=== PATIENT | male | born 1955 | race Caucasian/White ===

== ENCOUNTER 2016-10-05 09:03 | Inpatient (IN) | payer BC, OTHER ==
[~2016-10-05 09:03] MED LIST: ATEN100 PO; CARBAT200 PO; DEPAKOT500 PO; FISH-EPA1000 MG PO; MAX25 PO; PRAVACHOL40 MG PO
[2016-10-05] MEDS ORDERED: VITAMIN D31000 UNIT PO (09:06)
[2016-10-05] MEDS ORDERED: LOVAZA1 GM PO (09:06)
[2016-10-05] MEDS ORDERED: CARBAT200 PO (09:06)
[2016-10-05 09:37] LABS: BASOPHILS 0.4 %; BASOPHILS ABSOLUTE 0.03 10/3/uL (0.0-0.16); EOSINOPHILS 2.3 %; EOSINOPHILS ABSOLUTE 0.16 10/3/uL (0.0-0.53); HEMATOCRIT 49.2 % (40.0-51.0); HEMOGLOBIN 16.5 g/dL (13.6-17.8); IMMATURE GRANULOCYTES 0.3 %; IMMATURE GRANULOCYTES ABSOLUTE 0.02 10/3/uL (0.0-0.11); LYMPHOCYTES 27.5 %; LYMPHOCYTES ABSOLUTE 1.88 10/3/uL (0.67-4.30); MEAN CORPUS HGB CONC 33.5 g/dL (32.0-36.0); MEAN CORPUSCULAR VOLUME 77.6 fL (80-100); MEAN PLATELET VOLUME 10.9 fL (9.2-13.0); MONOCYTES 6.6 %; MONOCYTES ABSOLUTE 0.45 10/3/uL (0.21-1.20); NEUTROPHILS 62.9 %; NEUTROPHILS ABSOLUTE 4.29 10/3/uL (2.02-8.40); RBC DISTRIBUTION WIDTH 14.3 % (12.0-16.0); RED CELL COUNT 6.34 10/6/uL (4.7-6.1)
[2016-10-05 09:38] LABS: ER CBC TAT 0 Hrs 02 Mins; MANUAL DIFF NO %; PLATELET COUNT 197 10/3/uL (150-400); WHITE BLOOD CELLS 6.8 10/3/uL (4.5-10.5)
[2016-10-05 09:52] LABS: INTERNATIONAL NORMAL RATI 1.1 UNITS (-); PARTIAL THROMBO TIME 25.6 SEC (22.5-37.2); PROTIME (NOT ORD) 13.8 SEC (12.0-14.5)
[2016-10-05 10:04] LABS: CHEST PAIN PROFILE TAT 0 Hrs 28 Mins; TROPONIN I 0.06 NG/ML (<0.05)
[2016-10-05 10:05] LABS: BUN (BLOOD UREA NITROGEN) 17 MG/DL (6-23); CHLORIDE, SERUM 103 MMOL/L (96-112); CO2 (CARBON DIOXIDE) 28 MMOL/L (24-34); CREATININE 0.82 MG/DL (0.70-1.30); GFR AFRICAN AMERICAN 109 ML/MIN (>=60); GFR NON AFRICAN AMERICAN 94 ML/MIN (>=60); SODIUM, SERUM 137 MMOL/L (135-148)
[2016-10-05 10:06] LABS: CALCIUM, SERUM 8.8 MG/DL (8.5-10.4); GLUCOSE, SERUM 226 MG/DL (60-99)
[2016-10-05 13:46] LABS: CK-MB 94.8 NG/ML; CKMB INDEX (NOT ORD) 11.5
[2016-10-05 13:47] LABS: TROPONIN I 31.4 NG/ML (<0.05)
[2016-10-05 20:23] LABS: CK-MB 90.7 NG/ML
[2016-10-05 20:25] LABS: CKMB INDEX (NOT ORD) 12.8
[2016-10-06 04:24] LABS: BASOPHILS 0.2 %; BASOPHILS ABSOLUTE 0.02 10/3/uL (0.0-0.16); EOSINOPHILS 1.6 %; EOSINOPHILS ABSOLUTE 0.14 10/3/uL (0.0-0.53); HEMATOCRIT 45.9 % (40.0-51.0); HEMOGLOBIN 15.7 g/dL (13.6-17.8); IMMATURE GRANULOCYTES 0.2 %; IMMATURE GRANULOCYTES ABSOLUTE 0.02 10/3/uL (0.0-0.11); LYMPHOCYTES 16.6 %; MEAN CORPUS HGB CONC 34.2 g/dL (32.0-36.0); MEAN CORPUSCULAR HEMOGLOB 26.3 pg (26.0-34.0); MEAN PLATELET VOLUME 10.4 fL (9.2-13.0); MONOCYTES ABSOLUTE 0.81 10/3/uL (0.21-1.20); NEUTROPHILS 72.4 %; NEUTROPHILS ABSOLUTE 6.54 10/3/uL (2.02-8.40); PLATELET COUNT 154 10/3/uL (150-400); RBC DISTRIBUTION WIDTH 14.2 % (12.0-16.0); RED CELL COUNT 5.96 10/6/uL (4.7-6.1)
[2016-10-06 04:31] LABS: MANUAL DIFF NO %
[2016-10-06 04:47] LABS: CHLORIDE, SERUM 104 MMOL/L (96-112); CHOL/HDL RATIO(NOT ORDER) 4.4 (0-5); CHOLESTEROL 224 MG/DL (< 200); CO2 (CARBON DIOXIDE) 26 MMOL/L (24-34); CREATININE 0.65 MG/DL (0.70-1.30); GFR AFRICAN AMERICAN 120 ML/MIN (>=60); GFR NON AFRICAN AMERICAN 104 ML/MIN (>=60); HDL CHOLESTEROL 51 MG/DL (> 39); NON-HDL CHOLESTEROL 173 MG/DL (< 160); POTASSIUM, SERUM 4.2 MMOL/L (3.5-5.3); SODIUM, SERUM 136 MMOL/L (135-148)
[2016-10-06 04:48] LABS: BUN (BLOOD UREA NITROGEN) 12 MG/DL (6-23); GLUCOSE, SERUM 110 MG/DL (60-99); LDL CHOLESTEROL 149 MG/DL (< 130); TRIGLYCERIDE 124 MG/DL (< 150)
[2016-10-07] MEDS ORDERED: ASAB PO (13:23)
[2016-10-07] MEDS ORDERED: LIPITOR40 PO (13:24)
[2016-10-07] MEDS ORDERED: TEGRETOL XR400 MG PO (13:25)
[2016-10-07] MEDS ORDERED: VITAMIN D31000 UNIT PO (13:25)
[2016-10-07] MEDS ORDERED: COREG3 PO (13:25)
[2016-10-07] MEDS ORDERED: PROMEGA PO (13:26)
[2016-10-07] MEDS ORDERED: EFFIENT10 PO (13:26)
== END 2016-10-07 16:13 | disposition home or self-care (01) | DRG 247 ==
LOC: SSU2 09:03 → CCU 10:55
PROVIDERS: Emergency Medicine; Internal Medicine Cardiovascular Disease
PROC: 0270346 Dilation of Coronary Artery, One Artery, Bifurcation, with Drug-eluting Intraluminal Device, Percutaneous Approach (ICD-10-PCS; principal; 2016-10-05)
PROC: 4A023N7 Measurement of Cardiac Sampling and Pressure, Left Heart, Percutaneous Approach (ICD-10-PCS; 2016-10-05)
PROC: B2151ZZ Fluoroscopy of Left Heart using Low Osmolar Contrast (ICD-10-PCS; 2016-10-05)
PROC: B2111ZZ Fluoroscopy of Multiple Coronary Arteries using Low Osmolar Contrast (ICD-10-PCS; 2016-10-05)
DX: I21.19 ST elevation (STEMI) myocardial infarction involving other coronary artery of inferior wall (principal); G47.33 Obstructive sleep apnea (adult) (pediatric); I25.10 Atherosclerotic heart disease of native coronary artery without angina pectoris; Z88.1 Allergy status to other antibiotic agents
CPT/HCPCS: 71010; 80048; 80061; 82550; 82553; 83735; 84484; 85025; 85347; 85610; 85730; 87641; 93005; 93458; 99152; 99153; 99285; A9270-GY; C1725; C1769; C1874; C1887; C1894; C8929; C9606; J0583; J2250; J3010; Q9957; Q9967